=== PATIENT | female | born 1980 | race Caucasian/White ===

== ENCOUNTER 2018-08-18 15:09 | Emergency (ER) | payer BC, OTHER ==
[~2018-08-18] VITALS: Ht 157.5 cm; Wt 87.1 kg
[2018-08-18 15:32] VITALS: BP 141/67
--- NOTE | 2018-08-18 15:36 | NUR ---
pt to lobby awaiting available bed with steady gait. vss.
--- NOTE | 2018-08-18 16:29 | NUR ---
patient taken to er bed via w/c
--- NOTE | 2018-08-18 16:51 | NUR ---
bib self with c/o right foot pain s/p puncture wound from broken mirror glass yesterday. Patient unable to bear full weight without pain. Swelling noted to anterior right foot. Skin intact. hx--patient denies rx--patient denies
--- NOTE | 2018-08-18 16:54 | NUR ---
Patient being evaluated by physician at bedside.
[2018-08-18 17:12] VITALS: BP 130/68
== END 2018-08-18 17:13 | disposition home or self-care (01) ==
LOC: MED 15:09
DX: S91.301A Unspecified open wound, right foot, initial encounter (principal); W25.XXXA Contact with sharp glass, initial encounter; Y93.89 Activity, other specified; Y92.89 Other specified places as the place of occurrence of the external cause; Y99.8 Other external cause status
CPT/HCPCS: 73630; 90471; 90715; 99284